=== PATIENT | female | born 1965 | race Caucasian/White ===

== ENCOUNTER 2023-06-05 13:53 | Outpatient (RCR) | payer MEDICAID, SELFPAY | END 2023-06-07 23:59 | disposition home or self-care (01) | LOC: CPTX 13:53 | PROVIDERS: PCP Physician Assistant; Referring Provider Physical Medicine & Rehabilitation Pain Medicine; Visit Provider Physical Medicine & Rehabilitation Pain Medicine | DX: Z53.9 Procedure and treatment not carried out, unspecified reason (principal) ==

== ENCOUNTER 2024-10-02 14:54 | Emergency (ER) | payer MEDICAID, SELFPAY ==
[2024-10-02 15:08] VITALS: PULSE 122; RESP 20; O2SAT 98; BMI 27.4
[2024-10-02 15:23] VITALS: BP 162/101; PULSE 97; RESP 18; TEMP 37.1; O2SAT 95
--- NOTE | 2024-10-02 15:25 | EKG_ITS ---
[facility] Test Date: 2024-10-02 Pat Name: DELVIN MEZA Department: Room: - Gender: Female [employer]: : 1965 Requested By: Bg Wei Order Number: [id number] Reading MD: Bg Wei Measurements Intervals [place] Rate: 93 P: 70 IN: 174 QRS: 59 QRSD: 76 T: 83 QT: 372 QTc: 463 Interpretive Statements SINUS RHYTHM WITH OCCASIONAL SUPRAVENTRICULAR PREMATURE COMPLEXES SEPTAL MYOCARDIAL INFARCTION , OF INDETERMINATE AGE [40+ ms Q WAVE IN V1/V2] Compared to ECG 02/23/2021 18:01:45 Myocardial infarct finding now present /store/S0/[id number].pdf
--- NOTE | 2024-10-02 15:25 | XR_ITS ---
Examination: AP chest single view Technique one AP upright portable chest single view Exam date and time: October 02, 2024 1554 hrs. Comparison February 23, 2021 Indications: Onset epigastric pain today. Findings: Normal heart size Mild prominence pulmonary vasculature Accentuation interstitial markings at the lung bases No lobar pneumonia No fiorella pulmonary edema Moderate osteopenia Impression: Accentuation of interstitial markings at the lung bases, bronchitis pattern Please see the CT chest report September 12, 2023
--- NOTE | 2024-10-02 15:29 | XR_ITS ---
Examination: Abdomen sonogram, Limited Date and time of exam: October 02, 2024 1710 hrs. Indications: Right upper abdominal pain and vomiting today Technique: Real-time palma scale transabdominal sonographic images of the upper abdomen obtained. Findings: Absent gallbladder Common bile duct 0.4 cm no stones Pancreatic head 2.9 cm Liver 18.2 cm fatty infiltration irregular contour no focal liver lesions Normal hepatopedal portal venous flow Patent IVC Impression: Absent gallbladder Normal common bile duct Hepatomegaly, primary hepatocellular disease versus cirrhosis
--- NOTE | 2024-10-02 15:30 | EDNOTE_ITS ---
<Statement entered by Ayah Baez MD - 10/19/24 07:19> As co-signing physician, I was present and available for consult prn. I concur with the plan and care as documented by the midlevel provider. ED Abdominal Pain RME/HPI General Chief Complaint: Abdominal Pain Stated complaint: ABD PAIN Time seen by provider: 10/02/24 15:21 Arrival date/time: 10/02/24 14:54 RME / HPI RME / HPI narrative: 58-year-old female patient with significant history of hypertension, hepatitis C, came in for evaluation regarding epigastric pain. Onset of symptoms since early this morning as epigastric pain, described as crampy stabbing severity moderate associated with nausea and vomiting. Denies any shortness of breath. Denies any other complaints. No medications taken prior to arrival. Abdominal surgeries include open cholecystectomy several years ago. Related Data Previous Rx's ?Medication ?Instructions ?Recorded dicyclomine 20 mg tablet 20 mg PO TID PRN abdominal p ain 10/02/24 #20 tabs metoclopramide HCl 10 mg tablet 10 mg PO Q6H PRN nause a and 10/02/24 (Reglan) vomiting #20 tabs pantoprazole 40 mg tablet,delayed 40 mg PO QDAY #20 ta bs 10/02/24 release (Protonix) Allergies Allergy/AdvReac Type Severity Reaction Status Date / Time No Known Allergies Allergy Unknown Uncoded 02/11/22 14:03 Review of Systems Review of Systems Narrative Review of Systems: Review of system reviewed and within normal limits except mentioned in HPI ED Exam Narrative Physical exam: VITAL SIGNS: Reviewed. GENERAL APPEARANCE: Alert and interactive, follows commands, no acute distress, HEAD AND FACE: Non-traumatic. ENT: PERRL, pink conjunctivitis, eyelid no trauma, Mucous membrane moist. NECK: Supple, nontender, no nuchal rigidity. CHEST: No tenderness, no crepitus, no paradoxical movement, no retractions. LUNGS: Clear, well ventilated, symmetric, no rales, no wheezing, no ronchi, no stridor, good breath sounds bilaterally. HEART: Regular rate, regular rhythm, no murmur, no gallops. ABDOMEN: Soft, positive bowel sounds, nondistended, no guarding, epigastric tenderness, no rebound, no masses, RECTAL: Deferred. GENITAL: Deferred. NEUROLOGICAL: Gross motor function intact sensory function intact, Appropriate for age. MUSCULOSKELETAL: low back nontender, full range of motion. EXTREMITIES: Nontender, full range of motion. SKIN: Color pink, dry, no rash, no lacerations, no abrasions, no contusions. LYMPHATICS: Deferred. Course Quality Measures none Orders Category Date Time Status CT Screening NOW Care 10/02/24 17:36 Completed EKG (ED ONLY) *Do not use* NOW Care 10/02/24 15:27 Completed Insert IV NOW Care 10/02/24 20:[address] abdomen pelvis w con Stat Exams 10/02/24 17:36 Completed EKG (ED Only) Stat Exams 10/02/24 15:25 Draft US gall bladder Stat Exams 10/02/24 15:29 Completed XR chest 1V Stat Exams 10/02/24 15:25 Completed B-Type Natriuretic Peptide Stat Lab 10/02/24 15:40 Completed CBC Stat Lab 10/02/24 15:40 Completed Comprehensive Metabolic Panel Stat Lab 10/02/24 15:40 Completed Lipase Stat Lab 10/02/24 15:40 Completed Partial Thromboplastin Time Stat Lab 10/02/24 15:40 Completed Troponin I Stat Lab 10/02/24 15:40 Completed Urinalysis, C/S if Indicated Stat Lab 10/02/24 15:55 Completed Famotidine Inj [Pepcid Inj] Med 10/02/24 15:25 Discontinued 20 mg IVP X1 ONE Ketorolac Inj [Toradol Inj] Med 10/02/24 15:25 Discontinued 30 mg IVP X1 ONE Ketorolac Inj [Toradol Inj] Med 10/02/24 20:51 Discontinued 30 mg IVP X1 ONE Morphine Inj Med 10/02/24 17:36 Discontinued 4 mg IVP X1 ONE Ondansetron Inj [Zofran Inj] Med 10/02/24 15:25 Discontinued 4 mg IV X1 ONE Ondansetron Inj [Zofran Inj] Med 10/02/24 20:47 Discontinued 4 mg IV X1 ONE Sodium Chloride 0.9% 1000 ml [Ns] 1,000 ml Med 10/02/24 15:27 Discontinued IV 999 mls/hr Vital Signs Vital signs: Vital Signs Temperature 98.8 F 10/02/24 15:23 Pulse Rate 97 10/02/24 15:23 Respiratory Rate 18 10/02/24 15:23 Blood Pressure 162/101 H 10/02/24 15:23 Pulse Oximetry (%) 95 10/02/24 15:23 Oxygen Delivery Method Room Air 10/02/24 15:23 Abdominal Pain MDM MDM Narrative MDM Narrative:: 58-year-old [id number] female patient with significant history of hypertension, hepatitis C, came in for evaluation regarding epigastric pain. Onset of symptoms since early this morning as epigastric pain, described as crampy stabbing severity moderate associated with nausea and vomiting. Denies any shortness of breath. Denies any other complaints. No medications taken prior to arrival. Abdominal surgeries include open cholecystectomy several years ago. Patient was given IV fluids, morphine, Patient's workup today all came back unremarkable including ultrasound of the gallbladder which came back normal lipase normal except for slightly elevated LFTs which could be secondary to her hepatitis C urinalysis no UTI CT scan of the abdomen came back unremarkable. Patient appears nontoxic and hemodynamically stable. Patient discharged home and instructed to follow-up with primary care provider in 24 to 48 hours. Instructed to return to the emergency department immediately if worsening of symptoms Patient data External records reviewed:: None Clinical information provided by:: patient Social determinants that could affect healthcare access:: none Patient has the following chronic illnesses:: Hepatitis C, hypertension How is presenting disease/condition affected by chronic disease/condition?: exacerbated by Evaluation data The following diagnostics were reviewed and interpreted by me:: lab results, radiology exam(s) and EKG tracing(s) Lab and/or radiology exams considered but not ordered:: None Interpretation Summary: EKG showed sinus rhythm, ventricular to 93 bpm, no ST segment elevation depression noted. Medications / Prescriptions Medications or Prescriptions considered but not ordered:: Plan Medication administrations:: Medication Administration History Discontinued Medications Famotidine (Famotidine Inj 10 Mg/Ml Vial 2 Ml) 20 mg IVP X1 ONE Stop: 10/02/24 15:26 Last Admin: 10/02/24 20:52 Dose: Not Given Documented By: CVL Non-Admin Reason: Cancelled by Provider Sodium Chloride (Ns) 1,000 mls @ 999 mls/hr IV .Q1H1M ONE Stop: 10/02/24 16:27 Last Infusion: 10/02/24 21:41 Dose: Infused Documented By: Admin: 10/02/24 20:39 Dose: 999 mls/hr Documented By: CVL Ketorolac Tromethamine (Ketorolac Inj 30 Mg/Ml Vial) 30 mg IVP X1 ONE Stop: 10/02/24 15:26 Last Admin: 10/02/24 20:52 Dose: Not Given Documented By: CVL Non-Admin Reason: Duplicate Medication on eMAR Ketorolac Tromethamine (Ketorolac Inj 30 Mg/Ml Vial) 30 mg IVP X1 ONE Stop: 10/02/24 20:52 Last Admin: 10/02/24 21:05 Dose: 30 mg Documented By: CVL Morphine Sulfate (Morphine Sulf Inj 10 Mg/Ml Vial) 4 mg IVP X1 ONE Stop: 10/02/24 17:37 Last Admin: 10/02/24 20:39 Dose: 4 mg Documented By: CVL Ondansetron HCl (Ondansetron Inj 2 Mg/Ml Inj 2 Ml) 4 mg IV X1 ONE; Protocol Stop: 10/02/24 15:26 Last Admin: 10/02/24 20:53 Dose: Not Given Documented By: CVL Non-Admin Reason: Duplicate Medication on eMAR Ondansetron HCl (Ondansetron Inj 2 Mg/Ml Inj 2 Ml) 4 mg IV X1 ONE; Protocol Stop: 10/02/24 20:48 Last Admin: 10/02/24 20:56 Dose: 4 mg Documented By: CVL Morphine, Toradol, Zofran, IV fluids, Pepcid Consultations Consultation(s) initiated? (list below): No Consultation #1 (Physician, Specialty, Details): None Diagnosis Differential diagnosis abdominal pain: abdominal pain, gastroenteritis and pancreatitis (Abdominal pain, epigastric pain) Most likely diagnosis given after review of the tests above:: Epigastric pain, abdominal pain Admission Indicated Admission indicated?: not indicated Explain why admission is indicated or not indicated:: Stable per charge Admission Request Was there a request for admission?: No Disposition Plan Disposition Plan: Discharge Discharge Attestation Discharge Attestation: The patient and all family members were given an opportunity to ask questions and understood the discharge instructions. Discharge instructions specifically effects, indications for sooner follow up or return to the emergency department, and the expected course of current diagnosis. Patient condition: Stable Discharge Plan Plan Patient Disposition: HOME (Self Care) Disposition Comment: stable Prescriptions/Referrals Prescriptions/Med Rec: New pantoprazole [Protonix] 40 mg tablet,delayed release (DR/EC) 40 mg PO QDAY Qty: 20 0RF dicyclomine 20 mg tablet 20 mg PO TID PRN (Reason: abdominal pain) Qty: 20 0RF metoclopramide HCl [Reglan] 10 mg tablet 10 mg PO Q6H PRN (Reason: nausea and vomiting) Qty: 20 0RF Referrals: Laurel Tejeda PA-C [Primary Care Provider] - In 1 week Problem List Clinical Impression: Abdominal pain, Acute epigastric pain Patient/Caregiver Discharge Instructions Discharge Activity: activity as tolerated Education Materials: Abdominal Pain Additional Instructions: Thank you for the opportunity for serving you today. You are stable for discharged . You are advised to: Follow-up with your PCP in 1 to 2 days Return to ED for worsening of symptoms Increase oral fluids Take medication as prescribed Print Language: Yi Stand Alone Forms: Lisa Award Info., Patient Portal Info Letter FERDINAND/FLACO Supervising Physician FERDINAND/FLACO Supervising Physician: MD Nestor
[2024-10-02 15:52] LABS: Basophils % (Auto) 0 % (0-2.5); Eosinophils % (Auto) 0 % (0-10); Hematocrit 46.4 % (36.0-46.0); Immature Granulocytes % (Auto) 0 % (0-0); Immature Granulocytes Auto 0.03 Thou/mm3 (0.00-0.00); Lymphocytes # (Auto) 1.2 Thou/mm3 (1.0-4.8); Lymphocytes % (Auto) 13 % (10-50); Mean Corpuscular HGB Conc 34.5 g/dl (31.0-37.0); Mean Corpuscular Hemoglobin 33.1 pg (25.0-35.0); Mean Corpuscular Volume 96 fL (80-100); Monocytes # (Auto) 0.4 Thou/mm3 (0.0-0.8); Monocytes % (Auto) 4 % (0-12); Neutrophils # (Auto) 7.2 Thou/mm3 (1.8-7.7); Neutrophils % (Auto) 82 % (37-80); Nucleated Red Blood Cell % 0 /100 WBC (0); Platelet Count 231 Thou/mm3 (140-440); RDW Standard Deviation 49.9 fL (36.4-46.3); Red Blood Count 4.84 Miln/mm3 (4.00-5.20); White Blood Count 8.8 Thou/mm3 (3.6-11.0)
[2024-10-02 16:02] LABS: Collection Type, Urine Clean Catch
[2024-10-02 16:10] LABS: B-Type Natriuretic Peptide 114 pg/mL (0-100)
[2024-10-02 16:12] LABS: Alanine Aminotransferase 50 U/L (10-49); Albumin/Globulin Ratio 1.1 (1.2-2.2); Alkaline Phosphatase 119 U/L (46-116); Anion Gap 10 (7-16); Aspartate Amino Transferase 36 U/L (0-34); BUN/Creatinine Ratio 13 Ratio (12-20); Bilirubin,Total 0.7 mg/dL (0.3-1.2); Blood Urea Nitrogen 14 mg/dL (9-23); Calcium 10.5 mg/dL (8.3-10.6); Calcium (Corrected) 10.5 mg/dL (8.5-10.1); Carbon Dioxide 21.3 mMol/L (20.0-31.0); Chloride 104 mMol/L (98-107); Creatinine (Component) 1.1 mg/dL (0.6-1.3); Estimated Creatinine Clearance 52.4 mL/min (>60); Globulin 4.6 gm/dL (2.3-3.5); Glucose 165 mg/dL (74-106); Lipase 29 U/L (12-53); Osmolality,Calculated 274 (275-295); Potassium 4.4 mMol/L (3.4-5.1); Sodium 135 mMol/L (136-145); Total Protein 9.6 gm/dL (5.7-8.2); Troponin I < 0.020 ng/mL (0.0-0.045); eGFR 58 See Note
[2024-10-02 16:26] LABS: Partial Thromboplastin Time 25.5 Seconds (22.0-36.0)
[2024-10-02 16:52] LABS: Bilirubin,Urine 1+ (Negative); Blood,Urine 1+ (Negative); Color,Urine Yellow (Lt Yel-Yel); Culture Indicated,Urine Not Indicated; Glucose, Urine Trace (Negative); Granular Casts,Urine < 1 /hpf (0-1); Hyaline Casts,Urine 1 /hpf (0-1); Ketones,Urine Trace (Negative); Leukocyte Esterase,Urine Negative (Negative); Nitrite,Urine Negative (Negative); Protein,Urine 3+ (Neg - Trace); RBC,Urine 13 /hpf (0-3); Squamous Epithelial Cell,Urine 4 /hpf (0-5); Transitional Epi Cells,Urine < 1 /hpf (0-5); WBC,Urine 6 /hpf (0-5)
[2024-10-02 16:56] LABS: Clarity,Urine Hazy (Clear/Hazy)
[2024-10-02 17:31] VITALS: BP 197/154; PULSE 79; RESP 18; TEMP 36.8; O2SAT 95
--- NOTE | 2024-10-02 17:36 | XR_ITS ---
Examination: CT abdomen with intravenous contrast CT pelvis with intravenous contrast 2-D coronal reconstructions 2-D sagittal reconstructions Date and time of exam:September 27, 2024 1036 hrs. Indications: Abdominal pain beginning 2:30 this morning. CTDI: vol (mGy) 9.24 DLP: (mGycm) 524 Technique: Multiple axial sections of the abdomen and pelvis have been obtained. 64 slice high-resolution scanner used. 3 mm axial sections have been obtained, post intravenous injection 60 cc [id number] 2-D sagittal, coronal reconstructions obtained. Low dose protocols were performed. One or more of the following dose reduction techniques were used; automated exposure control, adjustment of the mA and/or KV according to patient size, use of iterative reconstruction technique. Findings: Cirrhosis, liver irregular in contour, hepatomegaly 17 cm Splenomegaly, 13 cm Gallbladder is not visualized Common bile duct 8 mm No pancreatic mass No hydronephrosis Mild renal parenchymal scar formation No pericecal inflammatory change No bowel obstruction No pelvic mass Urinary bladder intact Diffuse colonic wall thickening, hepatic colopathy pattern No diverticulitis Advanced degenerative disc disease L4-L5, L5-S1 Impression: Cirrhosis Hepatosplenomegaly Mild bilateral renal parenchymal scar formation Hepatic colopathy No bowel obstruction or free air
[2024-10-02 20:35] VITALS: BP 155/125; PULSE 82; RESP 19; TEMP 36.6; O2SAT 95
[2024-10-02] MEDS: SODIUM CHLORIDE 0.9% 1000 ML 1,000 ML 999 ML IV (20:39)
[2024-10-02] MEDS: MORPHINE SULF INJ 10 MG/ML VIAL 4 MG IVP (20:39)
[2024-10-02] MEDS: ONDANSETRON INJ 2 MG/ML INJ 2 ML 4 MG IV (20:56)
[2024-10-02] MEDS: KETOROLAC INJ 30 MG/ML VIAL IVP (21:05)
[2024-10-02 23:26] VITALS: BP 145/93; PULSE 93; RESP 18
== END 2024-10-02 23:27 | disposition home or self-care (01) ==
PROVIDERS: Nurse Practitioner Family; Emergency Provider Emergency Medicine; PCP Physician Assistant
DX: R10.13 Epigastric pain (principal); R10.11 Right upper quadrant pain; R11.10 Vomiting, unspecified; R79.89 Other specified abnormal findings of blood chemistry; I49.1 Atrial premature depolarization; I10 Essential (primary) hypertension; B19.20 Unspecified viral hepatitis C without hepatic coma
CPT/HCPCS: 36415; 71045; 74177; 76705; 80053; 81001; 83690; 83880; 84484; 85025; 85730; 93005; 96361; 96374; 96375; A4649; J1885; J2270; J2405; J7030; Q9967

== ENCOUNTER 2024-10-26 09:50 | Emergency (ER) | payer MEDICAID, SELFPAY ==
--- NOTE | 2024-10-26 | XR_ITS ---
Examination: MRI lumbar spine without contrast Date and time of exam: October 26, 2024 1833 hrs. Indications: Lower back pain radiating down the left leg difficulty walking and standing weakness in the left leg 9 months Technique: Multiple MRI axial and sagittal sections lumbar spine. Sagittal T2-weighted images, TR 3500, TE 118 T1 weighted transverse sections, TR 688 T8.5, T2-weighted sagittal sections T1 weighted sagittal sections TR 621, TE 30 T2 axial sections, TR 4, 190, TE 84. Findings: Adequate alignment lumbar vertebral bodies Abdomen: Marrow signal with reactive bony endplate change L4-5 Diffuse lumbar disc narrowing, moderate to advanced L4-L5, L5-S1 Diffuse lumbar disc desiccation L5-S1 no disc protrusion L4-L5 6 mm central lumbar disc bulge extending to the right foraminal region with moderate right L4 ganglionic compression L3-L4 6 mm left foraminal disc bulge with mild left L3 ganglionic compression L2-L3 foraminal disc bulges, mild with no ganglionic compression L1-2 no disc protrusion Impression: L4-L5 6 mm central lumbar disc bulge extending to the right foraminal region with moderate right L4 ganglionic compression L3-L4 6 mm left foraminal disc bulge with mild left L3 ganglionic compression
[2024-10-26 10:15] VITALS: BP 133/94; PULSE 105; RESP 20; TEMP 36.7; O2SAT 97; BMI 26.6
--- NOTE | 2024-10-26 10:25 | PD.EDRME ---
Rapid Medical Screening Exam RME Arrival date/time: 10/26/24 09:50 59-year-old female presents emergency department complaint of lower back pain since last week Chief Complaint: Back Pain/Injury Vital signs: Vital Signs Temperature 98.1 F 10/26/24 10:15 Pulse Rate 105 H 10/26/24 10:15 Respiratory Rate 20 10/26/24 10:15 Blood Pressure 133/94 H 10/26/24 10:15 Pulse Oximetry (%) 97 10/26/24 10:15 Oxygen Delivery Method Room Air 10/26/24 10:15
[2024-10-26] MEDS: KETOROLAC INJ 30 MG/ML VIAL IM (10:38)
[2024-10-26] MEDS: DIAZEPAM 5 MG TABLET 10 MG PO (10:38)
[2024-10-26 11:15] LABS: Collection Type, Urine Clean Catch
[2024-10-26 11:32] LABS: Lactate (Lactic Acid) 1.6 mMol/L (0.4-2.0)
[2024-10-26 11:50] LABS: Basophils % (Auto) 0 % (0-2.5); Eosinophils % (Auto) 0 % (0-10); Hematocrit 48.9 % (36.0-46.0); Hemoglobin 16.9 g/dL (12.0-16.0); Immature Granulocytes % (Auto) 0 % (0-0); Immature Granulocytes Auto 0.02 Thou/mm3 (0.00-0.00); Lymphocytes # (Auto) 1.1 Thou/mm3 (1.0-4.8); Lymphocytes % (Auto) 19 % (10-50); Mean Corpuscular HGB Conc 34.6 g/dl (31.0-37.0); Mean Corpuscular Hemoglobin 33.3 pg (25.0-35.0); Mean Corpuscular Volume 96 fL (80-100); Monocytes # (Auto) 0.4 Thou/mm3 (0.0-0.8); Monocytes % (Auto) 6 % (0-12); Neutrophils # (Auto) 4.3 Thou/mm3 (1.8-7.7); Neutrophils % (Auto) 74 % (37-80); Nucleated Red Blood Cell % 0 /100 WBC (0); Platelet Count 166 Thou/mm3 (140-440); RDW Standard Deviation 51.6 fL (36.4-46.3); Red Blood Count 5.08 Miln/mm3 (4.00-5.20); White Blood Count 5.9 Thou/mm3 (3.6-11.0)
[2024-10-26 11:57] LABS: Amphetamine/Methamp Scrn,U Negative (Negative); Barbiturate Screen,Urine Negative (Negative); Benzodiazepines Screen,Urine Negative (Negative); Benzoylecgonine Screen, Ur Negative (Negative); Fentanyl Screen,Urine Negative (Negative); Opiate Screen,Urine Positive (Negative); THC Screen,Urine Positive (Negative)
[2024-10-26 12:02] LABS: Alanine Aminotransferase 67 U/L (10-49); Albumin, Serum 4.5 gm/dL (3.5-5.0); Alkaline Phosphatase 176 U/L (46-116); Anion Gap 9 (7-16); Aspartate Amino Transferase 57 U/L (0-34); BUN/Creatinine Ratio 19 Ratio (12-20); Bilirubin,Total 0.7 mg/dL (0.3-1.2); Blood Urea Nitrogen 17 mg/dL (9-23); Carbon Dioxide 21.5 mMol/L (20.0-31.0); Chloride 104 mMol/L (98-107); Creatinine (Component) 0.9 mg/dL (0.6-1.3); Estimated Creatinine Clearance 64.8 mL/min (>60); Globulin 4.6 gm/dL (2.3-3.5); Glucose 100 mg/dL (74-106); Osmolality,Calculated 269 (275-295); Potassium 4.3 mMol/L (3.4-5.1); Procalcitonin 0.22 ng/ml (0.0-0.49); Sodium 134 mMol/L (136-145); Total Protein 9.1 gm/dL (5.7-8.2); eGFR > 60 See Note
[2024-10-26 13:21] LABS: Bilirubin,Urine 1+ (Negative); Blood,Urine 1+ (Negative); Clarity,Urine Turbid (Clear/Hazy); Color,Urine Yellow (Lt Yel-Yel); Glucose, Urine Negative (Negative); Hyaline Casts,Urine 2 /hpf (0-1); Ketones,Urine Trace (Negative); Leukocyte Esterase,Urine Positive (Negative); Nitrite,Urine Negative (Negative); Protein,Urine 1+ (Neg - Trace); RBC,Urine 8 /hpf (0-3); Squamous Epithelial Cell,Urine 22 /hpf (0-5); WBC,Urine 17 /hpf (0-5)
[2024-10-26 15:41] VITALS: BP 161/101; PULSE 96; RESP 20; TEMP 36.4; O2SAT 97
--- NOTE | 2024-10-26 15:56 | PC.NURSE ---
Patient from [facility] and taken to room 8 with c/o left lower back pain radiating down left leg, and numbness and tingling to left hand. Dr. Christianson at bedside to assess patient.
--- NOTE | 2024-10-26 16:00 | PD.EDBACK ---
ED Back Injury Pain RME/HPI General Chief Complaint: Back Pain/Injury Stated Complaint: Back pain Time Seen by Provider: 10/26/24 11:35 Arrival date/time: 10/26/24 09:50 RME / HPI RME / HPI Narrative: 10/26/24 09:50 59-year-old female presents emergency department complaint of lower back pain since last week DR. CHRISTIANSON MAIN ED EVALUATION: 59 year old female with past medical history significant for arthritis, hypertension, and hepatitis C presents to the Emergency Department with complaint of left lower back pain that radiates to the left leg onset 9 days. Pain is described as soreness and rated severe. Movement and walking exacerbates the pain. Patient has an arthritis doctor in [place], Dr. Mai; but has not been able to see him until patient is cleared for her Hep C, she is in the process for a referral. Patient denies any fevers, chills, nausea, vomiting, diarrhea, fall, injury, loss of consciousness, or any other symptoms at this time. PCP: Laurel Tejeda Related Data Previous Rx's ?Medication ?Instructions ?Recorded dicyclomine 20 mg tablet 20 mg PO TID PRN abdominal pain 10/02/24 #20 tabs metoclopramide HCl 10 mg tablet 10 mg PO Q6H PRN nausea and 10/02/24 (Reglan) vomiting #20 tabs pantoprazole 40 mg tablet,delayed 40 mg PO QDAY #20 tabs 10/02/24 release (Protonix) Allergies Allergy/AdvReac Type Severity Reaction Status Date / Time No Known Allergies Allergy Unknown Uncoded 10/26/24 09:54 Review of Systems Review of Systems Systems Reviewed: All systems reviewed, normal except as documented Narrative Review of Systems: GEN: No fever, no chills, no weight loss EYES: No discharge, no visual changes, no pain HEENT: No ear pain, no congestion, no sore throat PULM: No shortness of breath, no cough, no congestion CV: No chest pain, no dyspnea on exertion, no palpitations GI: No nausea, no vomiting, no diarrhea, no pain, no constipation : No frequency, no urgency and no dysuria MUSC/SKEL: + left lower back pain that radiates to the left leg SKIN: No rash PSYCH: No hallucinations, no depression HEME/LYMPH: No easy bleeding or bruising tendencies NEURO: No weakness, no headache Past Medical History Past Medical History CARDIAC: Positive Cardiac Disorders and Hypertension; Negative Congestive Heart Failure RESPIRATORY: Positive Asthma; Negative Chronic Obstructive Pulmonary Disease (COPD) GENITOURINARY: Negative Renal Disease MUSCULOSKELETAL: Positive Rheumatoid Arthritis ENDOCRINE: Negative Diabetes Mellitus Type 1 or Diabetes Mellitus Type 2 OTHER HISTORY: Positive Autoimmune Disease (lupus) Social History SMOKING STATUS: Current every day smoker SUBSTANCE USE: does not use ALCOHOL LAST INTAKE: Unknown Travel History EBOLA RISK: No Past Medical History Comments PMH COMMENT: Allergies NKDA Home medications//strength indicates she is taking metoprolol, lisinopril and amlodipine Social history/tobacco around 1/2 pack/day, no alcohol or drug use, single and living with daughter, living in [place] Past surgical history/cholecystectomy and tubal ligation Past medical history/hypertension, rheumatoid arthritis, anxiety, smoker Family history/CHF, sister with CVA ED Exam Narrative Physical exam: Physical Exam: General: The vital signs were reviewed. The patient is non-toxic, in no apparent distress and appears healthy with a patent airway, no respiratory distress and has no apparent circulatory problems. Head & Scalp: Normocephalic, atraumatic. Face: Appears normal and is without lesions, deformity. Ears: Left external pinna appears normal. Right external pinna appears normal. Eyes: The sclera is anicteric. No obvious photophobia. The Left and Right Orbit/Lid/Conjunctiva appears normal without swelling, discoloration or injection. Nose: The nose is without deformity, discharge or tenderness; Throat: Appears normal. The mucous membranes are pink and moist without exudates, redness or mass seen. The tongue appears normal. Neck: The neck is supple and no apparent mass or adenopathy. Chest: The chest wall is normal in size and symmetry and has no chest wall tenderness or crepitus. The patient displays normal ventilator effort without retractions, accessory muscle use and has adequate air movement bilaterally with no wheezes and no rales. Cardiovascular: Regular rate and rhythm; No murmurs, rubs, or gallops; Gastrointestinal: The abdomen appears normal. No obvious hernias or mass. The abdomen is soft and benign, non-distended, with no pain, no guarding and no rebound tenderness. Bowel sounds are present and normal sounding. No CVA tenderness. Genitourinary: Back/Spine: Normal inspection but has obvious left iliolumbar pain on palpation. Extremities/Musculoskeletal/lymphatic: The bilateral upper and lower extremities are warm. There is no evidence of arterial insufficiency. There is no evidence of venous insufficiency/edema. The patient spontaneously moves bilateral upper and lower extremities with no pain and no limitation of movement. There is no apparent, injury or trauma. Skin: The skin is warm, dry and intact. No rashes. No petechia. No purpura. No abnormal bruising. The color is appropriate with no cyanosis. Mental status/Psychiatric: Mental status is appropriate for age. The patient has no apparent delusions, visual hallucinations, no apparent audible hallucinations. The patient has no apparent suicidal thoughts/ideation and no apparent homicidal thoughts/ideation. Neurological: The patient is awake, alert, interactive, cordial, cooperative and is oriented to name and situation. The patient follows commands and answers historical question with no impairment. There is no visual disturbance apparent. The pupils are equal and reactive bilaterally with normal eye movements and no diplopia The bilateral upper and lower extremities have normal strength, normal range of motion and normal functioning. The gait, station and balance a were not tested due to acuity. Course Course Course Narrative: 1800: Patient was signed out to Dr. Jose. Past medical, surgical, social and family history reviewed. Vitals and home medications reviewed. Results and treatment plan discussed. They will assume the care of the patient at this time and will follow the patient, pending lumbar MRI and final disposition. Quality Measures none Orders Category Date Time Status MRI Screening NOW Care 10/26/24 16:17 Active MR lumbar spine wo con Stat Exams 10/26/24 Completed Blood Culture (Lab) Stat Lab 10/26/24 11:13 Received CBC Stat Lab 10/26/24 11:18 Completed CRP [C-Reactive Protein] Stat Lab 10/26/24 11:18 Completed Comprehensive Metabolic Panel Stat Lab 10/26/24 11:18 Completed Drug Screen,Urine Stat Lab 10/26/24 11:09 Completed Lactate (Lactic Acid) Stat Lab 10/26/24 11:18 Completed Procalcitonin Stat Lab 10/26/24 11:18 Completed Sed Rate (ESR) Stat Lab 10/26/24 11:18 Completed Urinalysis Stat Lab 10/26/24 11:09 Completed Urine Culture Stat Lab 10/26/24 11:09 Received Diazepam [Valium] Med 10/26/24 10:24 Discontinued 10 mg PO X1 ONE Ketorolac Inj [Toradol Inj] Med 10/26/24 10:24 Discontinued 30 mg IM X1 ONE Morphine Inj Med 10/26/24 16:01 Discontinued 4 mg IVP X1 ONE Ondansetron Inj [Zofran Inj] Med 10/26/24 16:01 Discontinued 4 mg IV X1 ONE Vital Signs Vital signs: Vital Signs Temperature 98.1 F 10/26/24 10:15 Pulse Rate 105 H 10/26/24 10:15 Respiratory Rate 20 10/26/24 10:15 Blood Pressure 133/94 H 10/26/24 10:15 Pulse Oximetry (%) 97 10/26/24 10:15 Oxygen Delivery Method Room Air 10/26/24 10:15 Back Pain / Injury MDM Narrative MDM Narrative:: Patient has intractable back pain getting worse for last 2 3 weeks with radicular symptoms. Because of this We did an MRI of the back which came back at 1845 hrs. As follows patient feels much better after some pain medicine. She clearly has some bulging disks that are significant and causing some ganglionic compression contributing to her left radicular symptoms. Patient was advised to follow-up with her regular doctor get referred to a spinal or back surgeon. She has no motor weakness or reflexes are adequate at this time. [facility] [address] [place] [address] [place] [facility] Report Signed Patient: DELVIN MEZA. Record#: [id number] Birthdate: 1965 Age/Sex: 59 / F Location: [facility] Attending Dr: Ordering Physician: Kadeem Christianson MD Date of Service: 10/26/24 Procedure(s): MR lumbar spine wo con Accession Number(s): [id number] cc: Kadeem Christianson MD; Nicholas Noe MD; Laurel Tejeda PA-C~ Examination: MRI lumbar spine without contrast Date and time of exam: October 26, 2024 1833 hrs. Indications: Lower back pain radiating down the left leg difficulty walking and standing weakness in the left leg 9 months Technique: Multiple MRI axial and sagittal sections lumbar spine. Sagittal T2-weighted images, TR 3500, TE 118 T1 weighted transverse sections, TR 688 T8.5, T2-weighted sagittal sections T1 weighted sagittal sections TR 621, TE 30 T2 axial sections, TR 4, 190, TE 84. Findings: Adequate alignment lumbar vertebral bodies Abdomen: Marrow signal with reactive bony endplate change L4-5 Diffuse lumbar disc narrowing, moderate to advanced L4-L5, L5-S1 Diffuse lumbar disc desiccation L5-S1 no disc protrusion L4-L5 6 mm central lumbar disc bulge extending to the right foraminal region with moderate right L4 ganglionic compression L3-L4 6 mm left foraminal disc bulge with mild left L3 ganglionic compression L2-L3 foraminal disc bulges, mild with no ganglionic compression L1-2 no disc protrusion Impression: L4-L5 6 mm central lumbar disc bulge extending to the right foraminal region with moderate right L4 ganglionic compression L3-L4 6 mm left foraminal disc bulge with mild left L3 ganglionic compression Binta Chavis am scribing for and in the presence of Dr. Christianson. Patient data External records reviewed:: [facility] previous records (Reviewed last ED visit dated 10/02/24, discharged with the following: Abdominal pain) Clinical information provided by:: patient and family (daughter) Social determinants that could affect healthcare access:: none Patient has the following chronic illnesses:: Arthritis, hypertension, and hepatitis C How is presenting disease/condition affected by chronic disease/condition?: exacerbated by Evaluation data The following diagnostics were reviewed and interpreted by me:: lab results and radiology exam(s) Lab and/or radiology exams considered but not ordered:: none Interpretation Summary: See above under MDM narrative. Medications / Prescriptions Medications or Prescriptions considered but not ordered:: none Medication administrations:: Medication Administration History Discontinued Medications Diazepam (Diazepam 5 Mg Tablet) 10 mg PO X1 ONE Stop: 10/26/24 10:25 Last Admin: 10/26/24 10:38 Dose: 10 mg Documented By: OA Ketorolac Tromethamine (Ketorolac Inj 30 Mg/Ml Vial) 30 mg IM X1 ONE Stop: 10/26/24 10:25 Last Admin: 10/26/24 10:38 Dose: 30 mg Documented By: OA Morphine Sulfate (Morphine Sulf Inj 10 Mg/Ml Vial) 4 mg IVP X1 ONE Stop: 10/26/24 16:02 Last Admin: 10/26/24 16:13 Dose: 4 mg Documented By: LYSSA Ondansetron HCl (Ondansetron Inj 2 Mg/Ml Inj 2 Ml) 4 mg IV X1 ONE; Protocol Stop: 10/26/24 16:02 Last Admin: 10/26/24 16:12 Dose: 4 mg Documented By: LYSSA see above Consultations Consultation(s) initiated? (list below): No Diagnosis Differential diagnosis back pain/injury: lumbar radiculopathy, sciatica and strain of lumbar region Most likely diagnosis given after review of the tests above:: No official diagnoses at this time, still pending diagnostic tests. Patient signout to the production shift supervisor provider. Admission Indicated Admission indicated?: not indicated Explain why admission is indicated or not indicated:: No final disposition plan at this time, still pending diagnostic tests. Patient signout to the production shift supervisor provider. Admission Request Was there a request for admission?: No Disposition Plan Disposition Plan: other (specify) (Patient signout to the production shift supervisor provider. ) Discharge Plan Plan Patient Disposition: HOME (Self Care) Prescriptions/Referrals Prescriptions/Med Rec: No Action pantoprazole [Protonix] 40 mg tablet,delayed release (DR/EC) 40 mg PO QDAY Qty: 20 0RF dicyclomine 20 mg tablet 20 mg PO TID PRN (Reason: abdominal pain) Qty: 20 0RF metoclopramide HCl [Reglan] 10 mg tablet 10 mg PO Q6H PRN (Reason: nausea and vomiting) Qty: 20 0RF Referrals: Laurel Tejeda PA-C [Primary Care Provider] - In 1 week Problem List Clinical Impression: Acute back pain, Herniated lumbar intervertebral disc Patient/Caregiver Discharge Instructions Additional Instructions: Your MRI reveals the following L4-L5 6 mm central lumbar disc bulge extending to the right foraminal region with moderate right L4 ganglionic compression L3-L4 6 mm left foraminal disc bulge with mild left L3 ganglionic compression You need to follow-up with your doctor get referred to a back or spine surgeon to evaluate this further and decide which would be the best approach for managing this whether surgical or medical management will be the best approach. If you lose bowel or bladder control or getting worse in any way please return or go to facility closest to the as we discussed. As we further discussed see your neckties painter tomorrow or the next day and take a copy the MRI report and let them decide your follow-up care and/or referral. Take your pain medicine as prescribed by your pain specialist Print Language: Thai Stand Alone Forms: Lisa Award Info., Patient Portal Info Letter
[2024-10-26] MEDS: ONDANSETRON INJ 2 MG/ML INJ 2 ML 4 MG IV (16:12)
[2024-10-26] MEDS: MORPHINE SULF INJ 10 MG/ML VIAL 4 MG IVP (16:13)
[2024-10-26 16:34] VITALS: BP 135/90; PULSE 97; RESP 20; TEMP 36.4; O2SAT 96
[2024-10-26 16:58] LABS: C-Reactive Protein < 0.4 mg/dL (0.0-0.9)
[2024-10-26 17:14] LABS: Sed Rate (ESR) 62 mm/hr (0-30)
--- NOTE | 2024-10-26 18:18 | PD.EDADDENDU ---
Emergency Room Addendum Addendum Narrative: [address] Christianson. Past medical, surgical, social and family history reviewed. Vitals and home medications reviewed. Results and treatment plan discussed. I will assume the care of the patient at this time and will follow the patient, pending work-up and final disposition Please refer to the emergency department record for history and examination from initial visit. The following addendum documentation note is intended to reflect any pending information, findings, or radiology results not included in the patient?s initial chart. Physical exam by me shows patient under no acute distress at this time.
[2024-10-26 20:00] VITALS: BP 140/90; PULSE 90; RESP 18; O2SAT 96
== END 2024-10-26 20:23 | disposition home or self-care (01) ==
PROVIDERS: Nurse Practitioner Primary Care; Emergency Provider Emergency Medicine; PCP Physician Assistant
DX: M51.26 Other intervertebral disc displacement, lumbar region (principal); I10 Essential (primary) hypertension; M19.90 Unspecified osteoarthritis, unspecified site
CPT/HCPCS: 36415; 72148; 80053; 80307; 81001; 83605; 84145; 85025; 85652; 86140; 87040; 87086; 96372; 96374; 99284; J1885; J2270; J2405; A9270

== ENCOUNTER 2024-10-30 20:51 | Emergency (ER) | payer MEDICAID, SELFPAY ==
[2024-10-30 21:00] VITALS: PULSE 88; RESP 18; O2SAT 98; BMI 27.4
[2024-10-30 21:03] VITALS: BP 215/140; PULSE 76; RESP 18; TEMP 36.6; O2SAT 98; BMI 29.7
[2024-10-30 21:26] VITALS: BP 218/111; PULSE 79; RESP 20; O2SAT 96
--- NOTE | 2024-10-30 22:26 | EDNOTE_ITS ---
Lower Extremity Injury RME/HPI General Chief Complaint: Extremity Injury, Lower Stated Complaint: BACK AND LEG PAIN Time Seen by Provider: 10/30/24 22:24 Source: patient Arrival date/time: 10/30/24 20:51 Mode of arrival: ambulatory Limitations: no limitations RME / HPI RME / HPI Narrative: DR BAEZ MAIN ED EVALUATION: 59-year-old female with a complex medical history who presents to the emergency department by ambulance for evaluation of progressively worsening left lower back pain that radiates to the left leg. Seen her for similar 9 days ago, diagnosed with herniated disc. Reports a notable exacerbation of her pain beginning this morning. EMS gave ketamine prior to her arrival. On scene, EMS documented a blood pressure of 200/100 mmHg, a pulse rate of 88 beats per minute, a respiratory rate of 18 breaths per minute, and an oxygen saturation of 98% on room air. Her past medical history is significant for hypertension, rheumatoid arthritis, anxiety, and hepatitis C. Although she has been under the care of Dr. Mai for her rheumatoid arthritis, a delay in follow-up occurred pending clearance for hepatitis C treatment, and she is currently in the process of referral. She is also a current smoker, but denies any alcohol or illicit drug use. Surgically, she has a history of cholecystectomy and tubal ligation. The family history is notable for congestive heart failure, and her sister has a history of cerebrovascular accident. Related Data Previous Rx's ?Medication ?Instructions ?Recorded dicyclomine 20 mg tablet 20 mg PO TID PRN abdominal p ain 10/02/24 #20 tabs metoclopramide HCl 10 mg tablet 10 mg PO Q6H PRN nause a and 10/02/24 (Reglan) vomiting #20 tabs pantoprazole 40 mg tablet,delayed 40 mg PO QDAY #20 ta bs 10/02/24 release (Protonix) Allergies Allergy/AdvReac Type Severity Reaction Status Date / Time No Known Allergies Allergy Unknown Uncoded 10/26/24 09:54 Review of Systems Review of Systems Systems Reviewed: All systems reviewed, normal except as documented Past Medical History Past Medical History NEUROLOGIC: Negative Seizures CARDIAC: Positive Cardiac Disorders and Hypertension; Negative Congestive Heart Failure RESPIRATORY: Positive Asthma and Sleep Apnea; Negative Chronic Obstructive Pulmonary Disease (COPD) GASTROINTESTINAL: Positive Gastrointestinal Disorders (HX OF COLON POLYPS) GENITOURINARY: Negative Renal Disease MUSCULOSKELETAL: Positive Rheumatoid Arthritis ENDOCRINE: Negative Diabetes Mellitus Type 1 or Diabetes Mellitus Type 2 HEMATOLOGIC: Negative Anemia or Sickle Cell Disease PSYCHO/SOCIAL: Positive Anxiety OTHER HISTORY: Positive Autoimmune Disease; Negative Blood Transfusions, Anesthesia Reactions, Chicken Pox, Measles, Mumps or Cancer Family History FAMILY HISTORY: Positive Family Cardiac Disorders (SISTER-HTN), Family Gastrointestinal Problems (MOTHER COLON CX) and Family Cancer (MOTHER - COLON CX) Surgical History SURGICAL: Positive Tubal Ligation Social History SMOKING STATUS: Never smoker SUBSTANCE USE: does not use ED Exam Narrative Physical exam: GENERAL APPEARANCE: alert and oriented x 4, well-developed, well-nourished, no acute distress VITALS: All vitals were reviewed and the pulse ox is 98% on room air, which is normal according to my interpretation. HEENT: Normocephalic, atraumatic; pupils equal, round, reactive to light; EOMI; mucous membranes pink, moist; oropharynx clear NECK: Supple LUNGS: CTABL; no wheezes, no rales, no rhonchi HEART: Regular rate, regular rhythm; normal S1, S2; no murmurs ABDOMEN: non distended; normal BS; soft, no tenderness, no guarding, no rebound; no masses, no organomegaly, no hernia BACK: no CVA tenderness EXTREMITIES: atraumatic; no edema NEUROLOGIC: awake; alert and oriented x4; cranial nerves II-XII grossly intact; no focal sensory or motor deficits PSYCHIATRIC: appropriate mood and affect SKIN: warm, dry, normal color; no rashes General Limitations: Present no limitations Course Quality Measures none Orders Category Date Time Status Bath Steward/Stewardess NOW Care 10/31/24 01:02 Completed EKG (ED ONLY) *Do not use* NOW Care 10/31/24 01:02 Completed EKG (ED Only) Stat Exams 10/31/24 01:02 Ordered XR abdomen series w chest 1V Stat Exams 10/31/24 01:02 Completed Diazepam Inj [Valium Inj] Med 10/30/24 22:47 Discontinued 5 mg IVP X1 ONE Diazepam [Valium] Med 10/30/24 22:30 Discontinued 5 mg PO X1 ONE HYDROmorphone INJ [Dilaudid Inj] Med 10/30/24 22:30 Discontinued 1 mg IVP X1 ONE Ketorolac Inj [Toradol Inj] Med 10/30/24 23:07 Discontinued 15 mg IVP X1 ONE Metoclopramide Inj [Reglan Inj] Med 10/31/24 00:46 Discontinued 10 mg IVP X1 ONE Ondansetron Inj [Zofran Inj] Med 10/30/24 22:47 Discontinued 4 mg IV X1 ONE Sodium Chloride 0.9% 1000 ml [Ns] 1,000 ml Med 10/31/24 00:46 Discontinued IV 999 mls/hr cloNIDine HCL [Catapres] Med 10/31/24 00:46 Discontinued 0.1 mg PO X1 ONE Vital Signs Vital signs: Vital Signs Temperature 97.8 F 10/30/24 21:03 Pulse Rate 76 10/30/24 21:03 Respiratory Rate 18 10/30/24 21:03 Blood Pressure 215/140 H 10/30/24 21:03 Pulse Oximetry (%) 98 10/30/24 21:03 Oxygen Delivery Method Room Air 10/30/24 21:03 Extremity Injury, Lower MDM Narrative MDM Narrative:: Scribe Attestation: Anita Chavis am scribing for and in the presence of Dr. Baez. Provider Notation: Although this document has been carefully reviewed, there may still be some phonetic and other typographical errors. These errors are purely grammatical due to imperfections in the software program and should not be construed in any way to compromise the substance of the patient's medical care during this visit. Patient data External records reviewed:: [facility] previous records Clinical information provided by:: patient Social determinants that could affect healthcare access:: none Patient has the following chronic illnesses:: see PMH How is presenting disease/condition affected by chronic disease/condition?: uneffected by Evaluation data The following diagnostics were reviewed and interpreted by me:: radiology exam(s) Lab and/or radiology exams considered but not ordered:: na Interpretation Summary: n/a Medications / Prescriptions Medications or Prescriptions considered but not ordered:: na Medication administrations:: Medication Administration History Discontinued Medications Clonidine (Clonidine Hcl 0.1 Mg Tablet) 0.1 mg PO X1 ONE Stop: 10/31/24 00:47 Last Admin: 10/31/24 01:03 Dose: Not Given Documented By: KD Non-Admin Reason: Other, see note Diazepam (Diazepam 5 Mg Tablet) 5 mg PO X1 ONE Stop: 10/30/24 22:31 Last Admin: 10/30/24 22:37 Dose: 5 mg Documented By: NICOLE Diazepam (Diazepam Inj 5 Mg/Ml Vial 2 Ml) 5 mg IVP X1 ONE Stop: 10/30/24 22:48 Last Admin: 10/30/24 22:58 Dose: 5 mg Documented By: NICOLE Hydromorphone HCl (Hydromorphone Inj 2 Mg/Ml Vial) 1 mg IVP X1 ONE Stop: 10/30/24 22:31 Last Admin: 10/30/24 22:36 Dose: 1 mg Documented By: NICOLE Sodium Chloride (Ns) 1,000 mls @ 999 mls/hr IV .Q1H1M ONE Stop: 10/31/24 01:46 Last Infusion: 10/31/24 02:02 Dose: Infused Documented By: Admin: 10/31/24 00:54 Dose: 999 mls/hr Documented By: NICOLE Ketorolac Tromethamine (Ketorolac Inj 30 Mg/Ml Vial) 15 mg IVP X1 ONE Stop: 10/30/24 23:08 Last Admin: 10/31/24 00:54 Dose: 15 mg Documented By: NICOLE Metoclopramide HCl (Metoclopramide Inj 5 Mg/Ml Vial 2 Ml) 10 mg IVP X1 ONE; Protocol Stop: 10/31/24 00:47 Last Admin: 10/31/24 00:54 Dose: 10 mg Documented By: NICOLE Ondansetron HCl (Ondansetron Inj 2 Mg/Ml Inj 2 Ml) 4 mg IV X1 ONE; Protocol Stop: 10/30/24 22:48 Last Admin: 10/30/24 23:02 Dose: 4 mg Documented By: NICOLE as above Consultations Consultation(s) initiated? (list below): No Diagnosis Extremity Injury, Lower Differential Diagnosis: ankle sprain and strain, fracture of femur, fracture of hip and ankle fracture Most likely diagnosis given after review of the tests above:: Patient eloped prior to determination Admission Indicated Admission indicated?: not indicated Admission Request Was there a request for admission?: No Disposition Plan Disposition Plan: other (specify) ([facility]) Discharge Plan Plan Patient Disposition: [facility]op[facility] Prescriptions/Referrals Prescriptions/Med Rec: No Action pantoprazole [Protonix] 40 mg tablet,delayed release (DR/EC) 40 mg PO QDAY Qty: 20 0RF dicyclomine 20 mg tablet 20 mg PO TID PRN (Reason: abdominal pain) Qty: 20 0RF metoclopramide HCl [Reglan] 10 mg tablet 10 mg PO Q6H PRN (Reason: nausea and vomiting) Qty: 20 0RF Referrals: Laurel Tejeda PA-C [Primary Care Provider] - In 1 week Problem List Clinical Impression: Back pain Patient/Caregiver Discharge Instructions Print Language: [place]
[2024-10-30] MEDS: HYDROmorphone INJ 2 MG/ML VIAL 1 MG IVP (22:36)
[2024-10-30] MEDS: DIAZEPAM 5 MG TABLET PO (22:37)
[2024-10-30] MEDS: DIAZEPAM INJ 5 MG/ML VIAL 2 ML IVP (22:58)
[2024-10-30] MEDS: ONDANSETRON INJ 2 MG/ML INJ 2 ML 4 MG IV (23:02)
--- NOTE | 2024-10-30 23:10 | PC.NURSE ---
PATIENT VOMITED PO VALIUM UP, PILL SEEN IN VOMIT. DR NOTIFIED. NEW MEDICATIONS PRESCRIBED.
--- NOTE | 2024-10-30 23:13 | PC.NURSE ---
PATIENT SLEEPING AT THIS TIME. NO DISTRESS DENIES PAIN.
[2024-10-30 23:36] VITALS: BP 218/111; PULSE 70; RESP 18; TEMP 36.6; O2SAT 98
[2024-10-31 00:44] VITALS: BP 243/154; PULSE 73; RESP 21; O2SAT 96
[2024-10-31] MEDS: KETOROLAC INJ 30 MG/ML VIAL 15 MG IVP (00:54)
[2024-10-31] MEDS: METOCLOPRAMIDE INJ 5 MG/ML VIAL 2 ML 10 MG IVP (00:54)
[2024-10-31] MEDS: SODIUM CHLORIDE 0.9% 1000 ML 1,000 ML 999 ML IV (00:54)
--- NOTE | 2024-10-31 00:55 | PC.NURSE ---
PATIENT VOMITING, PO MEDICATION NOT GIVEN D/T VOMITING. DR ELLISON
[2024-10-31 01:01] VITALS: BP 218/102; PULSE 74; RESP 14; O2SAT 98
--- NOTE | 2024-10-31 01:02 | XR_ITS ---
Examination: Abdomen series 3 views including AP upright chest Technique one AP portable upright chest, AP upright AP supine abdomen total 3 views Indications: Onset abdominal pain today Exam date and time: October 31, 2024 0106 hrs. Findings: Normal heart size Lungs are clear Abundant stool throughout the colon No obstruction No free air Prominent osteopenia Soft tissue vascular calcification Impression: Abundant stool throughout the colon, no obstruction
--- NOTE | 2024-10-31 01:06 | PC.NURSE ---
PATIENT INCONTINENT OF URINE. CLEANED AND PLACED IN DIAPER. PATIENT STARTED CRYING AND BECAME UNHAPPY. TOLD PATIENT I COULD TAKE DIAPER OFF BUT PATIENT DIDN'T WANT TO BE UNCOVERED. NOR DID SHE WANT TO WEAR WET UNDERWEAR. END RESULT PATIENT STAYED IN DIAPER.
== END 2024-10-31 01:23 | disposition left against medical advice (07) ==
LOC: SERX 23:30
PROVIDERS: Emergency Provider Emergency Medicine; PCP Physician Assistant
DX: M54.50 Low back pain, unspecified (principal); I10 Essential (primary) hypertension; M06.9 Rheumatoid arthritis, unspecified; F17.200 Nicotine dependence, unspecified, uncomplicated; Z53.29 Procedure and treatment not carried out because of patient's decision for other reasons; Z90.49 Acquired absence of other specified parts of digestive tract; Z98.51 Tubal ligation status
CPT/HCPCS: 74022; 80053; 81001; 83690; 83735; 84484; 85025; 96360; 99284; J1885; J2405; J2765; J3360; J3490; J7030; A9270

== ENCOUNTER → 2025-05-13 | Outpatient (CLI) | payer MEDICAID, SELFPAY ==
--- NOTE | 2025-05-13 12:00 | XR_ITS ---
Examination: Ultrasound abdominal aorta TECHNIQUE: Grayscale sonographic images abdominal aorta Date and time: May 13, 2025 12:00 PM INDICATIONS: History abdominal aortic aneurysm or CM 8 months ago on imaging FINDINGS: Transverse dimension proximal aorta 2.3 cm mid aorta 1.8 cm Gas unfortunately obscures the mid and distal aorta IMPRESSION: Study is severely limited secondary to bowel gas Suggest CTA abdomen pelvis post intravenous contrast follow-up
== END | disposition home or self-care (01) ==
LOC: CDIM 11:45
PROVIDERS: PCP Physician Assistant; Referring Provider Physician Assistant; Visit Provider Physician Assistant
DX: I71.40 Abdominal aortic aneurysm, without rupture, unspecified (principal)
CPT/HCPCS: 76770